=== PATIENT | female | born 1990 | race African-American/Black ===

== ENCOUNTER 2019-06-30 07:22 | Emergency (ER) | payer OTHER, SELFPAY ==
[2019-06-30 07:25] VITALS: BP 133/78; PULSE 76; RESP 18; TEMP 36.2; O2SAT 100
--- NOTE | 2019-06-30 07:30 | PC.NURSE ---
Pt refuses toradol at this time, states i dont want a shot, that doesn't work, they gave me that at urgent care and it didn't work
--- NOTE | 2019-06-30 07:43 | ED.GENADULT ---
HPI - General Adult General Chief complaint: Headache Stated complaint: headache Time Seen by Provider: 06/30/19 07:39 Source: patient Mode of arrival: ambulatory Limitations: no limitations History of Present Illness HPI narrative: 29-year-old with a history of asthma here with complaints of intermittent headache for 2 weeks she states that pain comes randomly and last for few minutes subsides with Tylenol. Patient states that she went to urgent care few days ago was given a shot of Toradol which helped. She also complains of occasional nausea. She denies any fever or chills. No history of visual problems. Onset (ago): week(s) (2) Location: head Severity: moderate Quality: aching Pain Consistency: intermittent Relieving factors: none Associated symptoms: nausea/vomiting Related Data Home Medications Medication Instructions Recorded Confirmed No Home Medications 06/30/19 06/30/19 Allergies Allergy/AdvReac Type Severity Reaction Status Date / Time fentanyl Allergy Difficulty Verified 06/30/19 07:31 Breathing Review of Systems Review of Systems: All systems reviewed & are unremarkable except as noted in HPI and below Constitutional: Constitutional: Reports no additional constitutional complaints Eyes: Eyes: Reports no additional eye complaints ENT: Reports system reviewed and no additional complaints, except as documented Cardiovascular: Cardiovascular: Reports no additional cardiovascular complaints Respiratory: Respiratory: Reports no additional respiratory complaints Gastrointestinal: Gastrointestinal: Reports no additional gastrointestinal complaints PMFSH Social History Social History Gender identity (if verbalized by the patient): Female Exam Narrative: Exam Narrative: GENERAL: Well-appearing, well-nourished, and in no acute distress. HEAD: Normocephalic, atraumatic. EYES: PERRLA and EOMI. ENT: Nares clear, no rhinorrhea or epistaxis. Mucous membranes moist. NECK: Supple. CHEST: Clear to auscultation. No respiratory distress. HEART: Regular rate and rhythm. No murmur heard. Normal peripheral pulses EXTREMITIES: Normal range of motion. No edema. SKIN: Warm, dry, no rash. NEURO: No focal deficits. Alert and oriented x3. PSYCH: Normal mood and affect. Course Course Emergency Course: Patient refused any pain medication at this time. I advised her that this pain is on and off that she needs to follow-up with a neurologist. Patient states that she has seen a neurologist and and yet still having headache. Vital Signs Vital signs: Vital Signs Temperature 36.2 C L 06/30/19 07:25 Pulse Rate 76 06/30/19 07:25 Respiratory Rate 18 06/30/19 07:25 Blood Pressure 133/78 06/30/19 07:25 Pulse Oximetry 100 06/30/19 07:25 Temperature 36.2 C L 06/30/19 07:25 Pulse Rate 76 06/30/19 07:25 Respiratory Rate 18 06/30/19 07:25 Blood Pressure 133/78 06/30/19 07:25 Pulse Oximetry 100 06/30/19 07:25 Medical Decision Making Vital Signs Vital Signs: Vital Signs Temperature 36.2 C L 06/30/19 07:25 Pulse Rate 76 06/30/19 07:25 Respiratory Rate 18 06/30/19 07:25 Blood Pressure 133/78 06/30/19 07:25 Pulse Oximetry 100 06/30/19 07:25 Temperature 36.2 C L 06/30/19 07:25 Pulse Rate 76 06/30/19 07:25 Respiratory Rate 18 06/30/19 07:25 Blood Pressure 133/78 06/30/19 07:25 Pulse Oximetry 100 06/30/19 07:25 Discharge Plan Discharge Clinical Impression: Headache Patient Disposition: Home, Self-Care Condition: Stable Instructions: Acute Headache (ED) Prescriptions: No Action No Home Medications RF: 0 Follow-up/Referrals: PHYSICIAN,[facility] [Primary Care Provider] - Time of Disposition: 07:49
== END 2019-06-30 07:47 | disposition home or self-care (01) ==
LOC: ANHED 07:50
PROVIDERS: Emergency Provider Family Medicine
DX: R51 Headache (principal)
CPT/HCPCS: 99281

== ENCOUNTER 2022-11-23 07:31 | Emergency (ER) | payer OTHER, SELFPAY ==
[2022-11-23 07:34] VITALS: BP 123/83; PULSE 77; RESP 17; TEMP 36.3; O2SAT 100
--- NOTE | 2022-11-23 08:04 | ED.HA ---
HPI - Headache General Chief Complaint: Headache Stated Complaint: h/a, nausea Time Seen by Provider: 11/23/22 07:41 History of Present Illness HPI Narrative: Patient is a 32-year-old female who presents ER with headache. Left-sided. Began yesterday evening. Associated with blurring of the eye on the left. The blurring has resolved. She still feels pressure behind her left eye. She is sensitive to light. She has mild nausea. No fever chills or sweats. No trauma. Reports history of migraines 10 years ago. She has no numbness or tingling to the arms or leg. No thunderclap sensation. Related Data Home Medications Medication Instructions Recorded Confirmed No Home Medications 06/30/19 06/30/19 Allergies Allergy/AdvReac Type Severity Reaction Status Date / Time fentanyl Allergy Difficulty Verified 11/23/22 07:38 Breathing Review of Systems Review of Systems: All systems reviewed & are unremarkable except as noted in HPI and below Constitutional: Constitutional: Denies chills, Denies fatigue and Denies fever(s) Eyes: Eyes: Reports change in vision and Reports photophobia ENT: Denies nasal congestion and Denies sore throat Cardiovascular: Cardiovascular: Denies chest pain, Denies rapid heart rate and Denies radiating jaw, neck or arm pain Respiratory: Respiratory: Denies cough and Denies dyspnea Neurologic: Denies dizziness, Denies syncope, Reports headache(s), Denies focal weakness and Denies numbness PMFSH Past Medical History Medical History (Updated 11/23/22 @ 09:03 by Constantine Acuna MD) Healthy female adult Surgical History Surgical History (Updated 11/23/22 @ 08:05 by Constantine Acuna MD) No pertinent past surgical history Social History Social History Gender identity (if verbalized by the patient): Female Exam Narrative: GENERAL: Well-appearing, well-nourished, and in no acute distress. HEAD: Normocephalic, atraumatic. EYES: PERRLA and EOMI. ENT: Mucous membranes moist. Dried in the eardrums bilaterally left greater than right. No cerumen impaction. NECK: Supple. CHEST: Clear to auscultation. No respiratory distress. HEART: Regular rate and rhythm. Normal peripheral pulses. EXTREMITIES: Normal range of motion. No edema. NEURO: Alert and oriented x3. PSYCH: Normal mood and affect. Course Course Emergency Course: Headache resolved with Toradol/Reglan/Benadryl/IV fluid. Feels comfortable with discharge home. Vital Signs Vital signs: Vital Signs Temperature 97.3 F L 11/23/22 07:34 Pulse Rate 77 11/23/22 07:34 Respiratory Rate 17 11/23/22 07:34 Blood Pressure 123/83 11/23/22 07:34 Pulse Oximetry 100 11/23/22 07:34 Oxygen Delivery Room Air 11/23/22 07:34 Temperature 97.3 F L 11/23/22 07:34 Pulse Rate 77 11/23/22 07:34 Respiratory Rate 17 11/23/22 07:34 Blood Pressure 123/83 11/23/22 07:34 Pulse Oximetry 100 11/23/22 07:34 Oxygen Delivery Room Air 11/23/22 07:34 Discharge Plan Discharge Clinical Impression: Migraine Patient Disposition: Home, Self-Care Condition: Stable Instructions: Migraine Headache (ED) Additional Instructions: ER if you have fever over 100.4 ?F, you cannot keep down food or water, you lose consciousness, you have additional concerns. Alternate Tylenol and ibuprofen at home to help keep your headache from returning. Prescriptions: No Action No Home Medications Follow-up/Referrals: UNKNOWN,DOCTOR [Non-Staff] - Funmi Bustos DO [Physician] - 2 Weeks
[2022-11-23] MEDS: KETOROLAC 30 MG/ML VIAL (*BKC) IV PUSH (08:13)
[2022-11-23] MEDS: METOCLOPRAMIDE HCL INJ 10 MG/2 ML VIAL IV PUSH (08:14)
[2022-11-23] MEDS: SODIUM CHLORIDE 0.9% IV 1,000 ML 999 ML IV CONT (08:14)
[2022-11-23] MEDS: diphenhydrAMINE HCl INJ 50 MG/ML VIAL 25 MG IV PUSH (08:14)
[2022-11-23 09:39] VITALS: BP 124/76; PULSE 86; RESP 16; O2SAT 98
== END 2022-11-23 09:40 | disposition home or self-care (01) ==
PROVIDERS: Emergency Provider Emergency Medicine
DX: G43.909 Migraine, unspecified, not intractable, without status migrainosus (principal)
CPT/HCPCS: 96361; 96374; 96375; 99284; J1200; J1885; J2765; J7030

== ENCOUNTER 2023-05-19 10:16 | Emergency (ER) | payer OTHER, SELFPAY ==
[2023-05-19 10:25] VITALS: BP 115/86; PULSE 76; RESP 18; TEMP 37.3; O2SAT 100
--- NOTE | 2023-05-19 10:39 | ED.EYEPROB ---
HPI - Eye Problem General Chief complaint: Skin/Abscess/Foreign Body Stated complaint: Swollen Eye Time Seen by Provider: 05/19/23 10:39 Source: patient, RN notes reviewed and old records reviewed Mode of arrival: ambulatory Limitations: no limitations History of Present Illness HPI Narrative: 33-year-old female presents to the [facility] with concerns by 2 lesions to the temporal area that started a couple of days ago. Has a history of the same on other parts of her body. Describes him as being very itchy. Upper lip mildly swollen without increased erythema. Denies any blurry vision or change in vision. Denies headaches. Treatments Prior to Arrival: none Related Data Allergies Allergy/AdvReac Type Severity Reaction Status Date / Time fentanyl Allergy Difficulty Verified 05/19/23 10:32 Breathing Review of Systems Review of Systems: All systems reviewed & are unremarkable except as noted in HPI and below Constitutional: Constitutional: Reports no additional constitutional complaints Eyes: Eyes: Reports as per HPI ENT: Reports system reviewed and no additional complaints, except as documented Cardiovascular: Cardiovascular: Reports no additional cardiovascular complaints, Denies chest pain and Denies dyspnea Respiratory: Respiratory: Reports no additional respiratory complaints, Denies chest congestion, Denies cough and Denies dyspnea Gastrointestinal: Gastrointestinal: Reports no additional gastrointestinal complaints, Denies abdominal pain, Denies nausea and Denies vomiting Musculoskeletal: Musculoskeletal: Reports no additional musculoskeletal complaints Integumentary/Breasts: Skin/Breast: Reports as per HPI Neurologic: Reports system reviewed and no additional complaints, except as documented Psychiatric: Psychiatric: Reports no additional psychiatric complaints Allergic/Immunologic: Allergic/Immunologic: Reports no additional allergic/immunologic complaints PMFSH Past Medical History Medical History Healthy female adult Surgical History Surgical History No pertinent past surgical history Social History Social History Gender identity (if verbalized by the patient): Female Comments At the time of my signature, I reviewed and agree with the nursing past medical, surgical, social, and family history. There is no relevant family history pertinent to the patient complaint. Exam Const: General: cooperative, healthy appearing, comfortable, no acute distress, well developed, alert and well nourished Nutritional Appearance: well nourished Orientation/consciousness: patient oriented x3 Limitations: no limitations HENMT: Head: normal to inspection Ears: hearing grossly normal bilaterally, external ears normal, TM's normal bilaterally, EAC's normal, mastoids normal and no periauricular adenopathy Face/Nose/Sinus: Normal external nose present, Normal nares present, Normal nasal mucous membranes and turbinates present, normal facial exam and face symmetric Face and sinus: normal facial exam and face symmetric Mouth: Yes Normal oral and palatal mucosa present, Yes lip normal and Yes moist mucous membranes Throat: posterior oropharynx normal and uvula midline Eyes: General: appearance normal, both eyes and all related structures Alignment and Position: alignment normal Periorbital: periorbital findings normal Eyelids: eyelid abnormality right upper eyelid swelling (mild); without inflamed cyst, without entropion, without erythema, without foreign bodies, without lacerations and no crusting or scaling of lid margins Conjunctivae: conjunctivae normal Pupils: Equal, round and reactive pupils present EOM: EOMs intact bilaterally Neck: Neck: normal visual inspection, full ROM, no lymphadenopathy and no meningeal signs Chest: Chest palpation & insp
== END 2023-05-19 11:10 | disposition home or self-care (01) ==
PROVIDERS: Emergency Provider Nurse Practitioner
DX: L30.9 Dermatitis, unspecified (principal)
CPT/HCPCS: 99213; G0463